=== PATIENT | female | born 1940 | race Caucasian/White ===

== ENCOUNTER 2020-07-07 23:27 | Emergency (ER) | payer MEDICARE, BC ==
[~2020-07-07] VITALS: Ht 175.3 cm; Wt 95.0 kg
[~2020-07-07 23:27] MED LIST: ALLOPURINOL300 MG PO; FORTAMET500 MG PO; LISINOPRIL10 MG PO
[2020-07-08 00:03] LABS: BASO # 0.1 (0.0-0.2); BASO % 0.8 % (0.0-2.0); EOS # 0.3 (0.0-0.7); EOS % 3.9 % (0-4.0); GRAN # 4.1 (1.4-6.5); GRAN % 49.2 % (42.2-75.2); HEMOGLOBIN 12.1 g/dl (12.5-16.0); LYMPH # 3.1 (1.2-3.4); LYMPH % 37.1 % (20.0-51.0); MEAN CELL VOLUME 93 fl (80.0-100.0); MEAN CORPUSCULAR HEMOGLOBIN 31 pg (27.0-31.0); MEAN CORPUSCULAR HGB CONC 33 g/dl (33.0-37.0); MEAN PLATELET VOLUME 10.9 fl (7.4-10.4); MONO # 0.7 (0.1-0.6); MONO % 8.6 % (1.7-9.3); PLATELET COUNT 252 K/mm3 (130-400); RED BLOOD COUNT 3.95 M/mm3 (4.10-5.30); REDCELL DISTRIBUTION WIDTH-CV 12.4 % (11.5-14.5)
[2020-07-08] MEDS ORDERED: BYSTOLIC10 MG PO (00:04)
[2020-07-08] MEDS ORDERED: ZYLOPRIM 100MG100 MG PO (00:04)
[2020-07-08 00:05] LABS: HEMATOCRIT 36.8 % (37.0-47.0)
[2020-07-08] MEDS ORDERED: PREVACID 30MG30 M1 PO (00:05)
[2020-07-08] MEDS ORDERED: CATAPRES 0.1MG0.1 MG PO (00:06)
[2020-07-08 00:15] LABS: ALANINE AMINOTRANSFERASE 25 U/L (4-34); ALBUMIN 4.2 gm/dL (3.5-5.0); ALKALINE PHOSPHATASE 86 U/L (50-136); ANION GAP 12 mmol/L (7-16); AST,SGOT 29 U/L (15-37); BILIRUBIN,TOTAL < 0.1 mg/dL (0.0-1.0); BLOOD UREA NITROGEN 16 mg/dL (7-17); CALCIUM 9.3 mg/dL (8.4-10.2); CARBON DIOXIDE 23 mmol/L (22-30); CHLORIDE 101 mmol/L (98-107); CREATININE, serum 0.68 (0.52-1.25); GLUCOSE 144 mg/dL (74-106); POTASSIUM 4.2 mmol/L (3.4-5.0); SODIUM 135 mmol/L (137-145); TOTAL PROTEIN 7.1 gm/dL (6.4-8.2)
[2020-07-08 00:28] LABS: TROPONIN-I < 0.012 ng/mL (0.000-0.035)
[2020-07-08 01:16] VITALS: BP 150/71; PULSE 70; TEMP 97.9
== END 2020-07-08 01:16 | disposition home or self-care (01) ==
LOC: COL.ER 23:27
PROVIDERS: Nurse Practitioner
DX: I10 Essential (primary) hypertension (principal); E66.9 Obesity, unspecified; Z88.0 Allergy status to penicillin; Z88.1 Allergy status to other antibiotic agents
CPT/HCPCS: J0360

== ENCOUNTER 2022-01-08 08:10 | Day surgery (SDC) | payer MEDICARE, BC ==
[~2022-01-08] VITALS: Ht 170.2 cm; Wt 84.5 kg
[~2022-01-08 08:10] MED LIST changes: +APRESOLINE 25MG25 MG PO; +BYSTOLIC10 MG PO; +CATAPRES 0.1MG0.1 MG PO; +CATAPRES-TTS 30.3 MG TD; +GEMTESA75 MG PO; +GLUCOPHAGE500 MG/TAB PO; +NORVASC 10MG10 MG PO; +PREVACID 30MG30 M1 PO; +RISPERDAL 0.5M0.5 MG; +ZYLOPRIM 100MG100 MG PO
[2022-01-08] MEDS ORDERED: [UNRECOGNIZED DRUG - OTHER] PO (09:38)
[2022-01-08] MEDS ORDERED: AVAPRO TAB150 MG/TAB PO (09:39)
[2022-01-08 09:40] VITALS: BP 149/79; PULSE 74; TEMP 97
[2022-01-08] MEDS ORDERED: ZYRTEC 10MG10 MG PO (09:40)
[2022-01-08 10:15] VITALS: BP 149/79; PULSE 71
--- NOTE | 2022-01-08 10:15 | NUR ---
PATIENT RETURNS TO BAY 1 PER CART ACCOMPANIED BY BRANDON BRAVO AND IS ALERT AND ORIENTED. GAIT STEADY IWTH TWO PERSON ASSIST. IV FLUIDS INFUSING. SON IN ROOM. CALL LIGHT IN REACH. DENIES DIFFICULTY SWALLOWING OR NAUSEA.
[2022-01-08 10:30] VITALS: BP 133/90; PULSE 66
--- NOTE | 2022-01-08 10:30 | NUR ---
TOLERATED APPLESAUCE AND WATER. IV DISCONTINUED AND SITE IS FREE OF REDNESS.
[2022-01-08 10:45] VITALS: BP 144/71; PULSE 66
--- NOTE | 2022-01-08 10:45 | NUR ---
RESTING AND AWAITS TO TALK WITH PHYSICIAN.
--- NOTE | 2022-01-08 11:00 | NUR ---
DR. ELIZABETH HERE AND TALKS WITH PATIENT AND SON. ALL QUESTIONS ANSWERED.
--- NOTE | 2022-01-08 11:05 | NUR ---
PATIENT IS DRESSED AND ASSISTED TO THE BATHROOM. GAIT STEADY.
--- NOTE | 2022-01-08 11:10 | NUR ---
DISMISSAL INSTRUCTIONS GIVEN AND PATIENT VOICES UNDERSTANDING OF THESE. PATIENT DISMISSED TO HOME DRIVEN BY SON AND TAKEN TO THE CAR PER WHEELCHAIR AND ASSISTED INTO CAR WITH INSTRUCTIONS IN HAND.
[2022-01-08 19:27] VITALS: BP 115/59; PULSE 69
== END 2022-01-08 11:10 | disposition home or self-care (01) ==
LOC: SDCO 08:10
DX: K22.2 Esophageal obstruction (principal); K21.00 Gastro-esophageal reflux disease with esophagitis, without bleeding; I10 Essential (primary) hypertension
CPT/HCPCS: C1726; J2704; J7120

== ENCOUNTER 2023-05-13 12:41 | Day surgery (SDC) | payer MEDICARE, BC ==
[~2023-05-13] VITALS: Ht 175.3 cm; Wt 79.0 kg
[~2023-05-13 12:41] MED LIST changes: +AVAPRO TAB150 MG/TAB PO; +LR 1,000 ML IV SCH; +Ondansetron 4 MG/2 ML VIAL IV PRN; +ZYRTEC 10MG10 MG PO; +[UNRECOGNIZED DRUG - OTHER] PO
[2023-05-13 13:15] VITALS: BP 148/83; PULSE 62; TEMP 98.1
--- NOTE | 2023-05-13 13:20 | NUR ---
The patient ambulated back to [place] [facility] independently using a steady gait and appeared to tolerate the activity well. Vital signs obtained. Consent signed. 20G IV started in right hand with LR infusing without difficulty. Assessment completed. Home medications reconcilled. Blood sugar obtained with a result of 105. Warm blankets provided. Call light is within reach. Denies any further needs.
[2023-05-13] MEDS ORDERED: GLUCOPHAGE500 MG/TAB PO (13:33)
[2023-05-13] MEDS ORDERED: PROTONIX 40MG T40 MG PO (13:34)
[2023-05-13] MEDS ORDERED: BYSTOLIC5 MG PO (13:35)
[2023-05-13 15:05] VITALS: BP 111/63; PULSE 71; TEMP 97.5
--- NOTE | 2023-05-13 15:05 | NUR ---
PATIENT ARRIVES TO ROOM 5 VIA CART. ASSIST X 2 TO CHAIR. CICIGHTER AT BEDSIDE. VITAL SIGNS WNL. PATIENT REQUESTS MUFFIN AND A SPRITE TO DRINK. CALL LIGHT WITHIN REACH. WILL CONTINUE TO MONITOR.
[2023-05-13 15:35] VITALS: BP 143/83; PULSE 66
--- NOTE | 2023-05-13 15:35 | NUR ---
PATIENT IS READY FOR DISCHARGE. DISCHARGE INSTRUCTIONS REVIEWED WITH PATIENT AND HER GRANDAUGHTER. LAST SET OF VITALS WNL. WILL DISCHARGE ONCE PATIENT IS DRESSED.
== END 2023-05-13 15:52 | disposition home or self-care (01) ==
LOC: SDCO 12:41
DX: K21.00 Gastro-esophageal reflux disease with esophagitis, without bleeding (principal); K31.7 Polyp of stomach and duodenum; Z12.11 Encounter for screening for malignant neoplasm of colon; Z86.010 Personal history of colon polyps; R19.4 Change in bowel habit; E11.9 Type 2 diabetes mellitus without complications; E66.9 Obesity, unspecified; Z68.33 Body mass index [BMI] 33.0-33.9, adult; Z79.84 Long term (current) use of oral hypoglycemic drugs
CPT/HCPCS: 43239; 43251; G0105; J7120